=== PATIENT | female | born 1980 | race Caucasian/White ===

== ENCOUNTER 2017-03-08 07:21 | Day surgery (SDC) | payer MEDICAID ==
[~2017-03-08 07:21] MED LIST: RINGER'S SOLUTION,LACTATED 1,000 ML IV PRN
[2017-03-08 07:40] LABS: Hematocrit 37.7 % (37.0-47.0); Mean Cell Volume 85.7 fl (78-100); Mean Corpuscular Hemoglobin 27.3 pg (27-31); Mean Corpuscular Hgb Conc 31.8 g/dl (32-36); Mean Platelet Volume 9.7 fl (6.0-9.5); Neutrophil # 5.6 K/mm3 (1.3-6.0); Neutrophil % 63.7 % (42-75.0); Platelet Count 246 K/mm3 (150-450); Red Cell Distribution Width 14.9 % (11.5-14.0); White Blood Count 8.8 K/mm3 (4.0-10.5)
[2017-03-08 08:07] LABS: Albumin * 3.6 gm/dl (3.4-5.0); Anion Gap 12.2 mmol/L (6.8-13.8); BUN/Creatinine Ratio 18.9 (9.0-21.6); Bilirubin, Total 0.5 mg/dL (0.0-1.1); Ca. Corrected For Albumin 8.7 mg/dL (8.4-10.2); Calcium * 8.7 mg/dL (7.9-10.9); Carbon Dioxide 24.8 mmol/L (24-32.6); Total Protein 7.1 gm/dL (6.2-8.2)
[2017-03-08] MEDS ORDERED: RINGER'S SOLUTION,LACTATED 1,000 ML IV ONE (08:10)
--- NOTE | 2017-03-08 09:08 | OR ---
Operative Report - Dictated Report Narrative: Date of Procedure: 03/08/2017 PROCEDURE: 1. Hysteroscopy and D&C ANESTHESIA: General with LMA. PREOPERATIVE DIAGNOSIS: 1. Menorrhagia 2. Thickened endometrium 2.2 cm 3. Cervical stenosis 4. Morbid obesity BMI 51.6 (weight 138 kg) POSTOPERATIVE DIAGNOSES: 1. Menorrhagia 2. Thickened endometrium 2.2 cm 3. Cervical stenosis 4. Morbid obesity BMI 51.6 (weight 138 kg) SURGEON: William Wilhlem MD SCOURER: Julia FINDINGS: 1. Mildly enlarged uterus, sounded to 10 cm, with endometrial polyps mostly on posterior uterine wall, no fibroids. Bilateral tubal ostia seen. 2. No other pathological findings. SPECIMEN: 1. Endometrial curettings. DRAINS: None. URINE OUTPUT: not measured BLOOD LOSS: 5 ml INTRAOPARATIVE IV FLUIDS: 400 ml Uterine distending media: Normal saline, In 700 ml, out 600 ml, deficit 100 ml COMPLICATIONS: None. DESCRIPTION OF PROCEDURE: The patient consented prior to the operation and taken to the operating room. She was placed on the operating table supine. General anesthesia was induced without difficulty. She was repositioned in the dorsal lithotomy position. Exam under anesthesia revealed a slightly enlarged uterus with no adnexal mass. The abdomen and the vagina were prepped with Betadine. She was draped in the usual sterile fashion. A time-out procedure was conducted to confirm the correct patient for the correct procedure. After time-out, a bivalve speculum was placed into the vagina. The cervix was visualized. The vagina and the cervix were prepped with Betadine one more time. The anterior cervix was grasped with a single-tooth tenaculum. The cervical os was dilated with dilators. The uterus was sounded to 10 cm. A 30 degree hysteroscope was inserted through cervical canal into the uterine cavity. Cervical canal appeared normal. There were endometrial polyps and no other pathologies. The hysteroscope was removed. Next, the bivalve speculum was removed. A right angle retractor was placed in the vagina. A sharp curette was inserted into the uterine cavity. The cavity was scraped in all directions. Moderate to large amount of endometrial curettings were obtained. The sharp curette was removed. The hysteroscope was inserted into the uterine cavity. The endometrial polyps were removed. The hysteroscope was removed. There was no bleeding from the cervix. The single- tooth tenaculum was removed. The tenaculum site was hemostastic. The right angle retractor was removed. Patient tolerated the procedure well. All counts were correct. The patient was taken to the recovery room in stable condition. William Wilhelm MD
[2017-03-08] MEDS ORDERED: oxyCODONE HCL/ACETAMINOPHEN 1 TAB TABLET PO ONE (09:09)
[2017-03-08] MEDS ORDERED: RINGER'S SOLUTION,LACTATED 1,000 ML IV PRN (09:09)
[2017-03-08] MEDS ORDERED: IBUPROFEN 800 MG TABLET PO ONE (09:09)
[2017-03-08 10:45] VITALS: BP 120/86
== END 2017-03-08 07:22 | disposition home or self-care (01) ==
LOC: AMB 07:21
PROVIDERS: ATTEND Obstetrics & Gynecology
PROC: 0UJD8ZZ Inspection of Uterus and Cervix, Via Natural or Artificial Opening Endoscopic (ICD-10-PCS; 2017-03-08)
PROC: 0UDB7ZX Extraction of Endometrium, Via Natural or Artificial Opening, Diagnostic (ICD-10-PCS; principal; 2017-03-08 08:00)
DX: N84.0 Polyp of corpus uteri (principal); N88.2 Stricture and stenosis of cervix uteri; N92.0 Excessive and frequent menstruation with regular cycle; E03.9 Hypothyroidism, unspecified; F41.9 Anxiety disorder, unspecified; E66.01 Morbid (severe) obesity due to excess calories; Z68.43 Body mass index [BMI] 50.0-59.9, adult